=== PATIENT | female | born 1970 ===

== ENCOUNTER 2020-03-09 10:15 | Inpatient (IN) | payer OTHER ==
[~2020-03-09] VITALS: Ht 160 cm; Wt 78.0 kg
[2020-03-19] MEDS ORDERED: KETO10TA2 PO (10:21)
== END 2020-03-19 10:50 | disposition home or self-care (01) | DRG 743 ==
LOC: O/R 03-16 06:00 → OB/GYN 03-16 06:00 → SURH 03-16 10:15 → O/R 03-16 10:15 → OB/GYN 03-16 11:56 → SURH 03-16 18:15 → OB/GYN 03-19 10:50
PROVIDERS: ADMIT Obstetrics & Gynecology; ATTEND Obstetrics & Gynecology
PROC: 0UB70ZZ Excision of Bilateral Fallopian Tubes, Open Approach (ICD-10-PCS; 2020-03-16)
PROC: 0TJB8ZZ Inspection of Bladder, Via Natural or Artificial Opening Endoscopic (ICD-10-PCS; 2020-03-16)
PROC: 0UT90ZZ Resection of Uterus, Open Approach (ICD-10-PCS; principal; 2020-03-16 18:15)
PROC: 0UB20ZZ Excision of Bilateral Ovaries, Open Approach (ICD-10-PCS; 2020-03-16 18:15)
DX: D25.1 Intramural leiomyoma of uterus (principal); N83.8 Other noninflammatory disorders of ovary, fallopian tube and broad ligament; N83.11 Corpus luteum cyst of right ovary